=== PATIENT | female | born 1990 | race Caucasian/White ===

== ENCOUNTER 2019-11-02 18:10 | Outpatient (CLI) | payer OTHER ==
[~2019-11-02] VITALS: Ht 167.6 cm; Wt 83.6 kg
--- NOTE | 2019-11-02 18:25 | NUR ---
Pt arrived on unit ambulatory, escorted by and with complaints of vaginal pain and pressure. Pt denies contractions, leaking of fluid or vaginal bleeding and reports normal movement. EFM and toco monitors started. Vital signs WNL. SVE by this RN closed/thick/high. Information reviewed with Dr. Jacobo. Orders for labor assessment received. Plan of care reviewed with pt and at the bedside. Both verbalized an understanding, agreed with the plan and states no questions or concerns.
[2019-11-02 18:32] VITALS: BP 133/87; PULSE 93; TEMP 97.9
--- NOTE | 2019-11-02 20:26 | NUR ---
Spoke with Dr. Jacobo for an update on pt's status. Orders for discharge home received. Discharge instructions and precautions reviewed with pt and at the bedside. Both verbalized an understanding, agreed with the plan and states no questions or concerns at this time.
== END 2019-11-02 20:37 | disposition home or self-care (01) ==
LOC: LDRO 18:10
DX: Z34.93 Encounter for supervision of normal pregnancy, unspecified, third trimester (principal); Z3A.36 36 weeks gestation of pregnancy

== ENCOUNTER 2019-11-12 11:23 | Inpatient (IN) | payer OTHER ==
[2019-11-12] VITALS (16 sets, daily range): BP systolic 101–130; BP diastolic 47–88; PULSE 76–103; TEMP 97.8
[~2019-11-12] VITALS: Ht 167.7 cm; Wt 84.1 kg
[2019-11-12 16:16] LABS: BASO % 0.4 % (0.0-2.0); EOS % 0.4 % (0-4.0); GRAN # 8.4 (1.4-6.5); GRAN % 74.3 % (42.2-75.2); HEMOGLOBIN 12.1 g/dl (12.5-16.0); LYMPH % 17.9 % (20.0-51.0); MEAN CELL VOLUME 77 fl (80.0-100.0); MEAN CORPUSCULAR HEMOGLOBIN 25 pg (27.0-31.0); MEAN CORPUSCULAR HGB CONC 33 g/dl (33.0-37.0); MEAN PLATELET VOLUME 13.1 fl (7.4-10.4); MONO # 0.8 (0.1-0.6); MONO % 6.6 % (1.7-9.3); PLATELET COUNT 260 K/mm3 (130-400); RED BLOOD COUNT 4.78 M/mm3 (4.10-5.30); REDCELL DISTRIBUTION WIDTH-CV 12.7 % (11.5-14.5)
[2019-11-13 02:00] VITALS: BP 133/93; PULSE 81; TEMP 97.8
[2019-11-13 05:45] VITALS: BP 135/95; PULSE 98; TEMP 98.1
[2019-11-13 07:15] VITALS: BP 130/92; PULSE 97; TEMP 98.2
--- NOTE | 2019-11-13 11:03 | NUR ---
Initial visit; Parents thanked [employer] for offering congratulations and God's blessings for the of their son. [employer] thanked family for choosing [facility].
[2019-11-13 16:30] VITALS: BP 111/71; PULSE 87; TEMP 99
[2019-11-13 21:00] VITALS: BP 123/71; PULSE 81; TEMP 98.3
[2019-11-14 08:11] VITALS: BP 130/90; PULSE 83; TEMP 98.7
[2019-11-14 12:38] VITALS: BP 129/84; PULSE 80; TEMP 98.6
[2019-11-14 17:03] VITALS: BP 133/90; PULSE 76; TEMP 97.6
[2019-11-14 19:17] VITALS: BP 139/81; PULSE 73; TEMP 98.4
[2019-11-15 07:21] VITALS: BP 122/84; PULSE 85; TEMP 98
[2019-11-15 15:34] VITALS: BP 142/90; PULSE 70; TEMP 98
[2019-11-15 20:00] VITALS: BP 150/88; PULSE 65; TEMP 97.3
--- NOTE | 2019-11-15 21:00 | NUR ---
MILK OF MAG. HELD BECAUSE PT. HAS HAD 2 BOWEL MOVEMENTS
[2019-11-16 02:00] VITALS: BP 132/78; PULSE 72; TEMP 98
[2019-11-16 04:30] VITALS: BP 129/80; PULSE 62; TEMP 97.8
[2019-11-16 07:15] VITALS: BP 131/93; PULSE 80; TEMP 98.6
[2019-11-16] MEDS ORDERED: MOTRIN 800800 MG/TAB PO (07:59)
== END 2019-11-16 08:55 | disposition home or self-care (01) | DRG 788 ==
LOC: OB 11:23
PROVIDERS: ADMIT Obstetrics & Gynecology
PROC: 10D00Z1 Extraction of Products of Conception, Low, Open Approach (ICD-10-PCS; principal; 2019-11-12)
DX: O10.92 Unspecified pre-existing hypertension complicating childbirth (principal); O34.211 Maternal care for low transverse scar from previous cesarean delivery; Z3A.37 37 weeks gestation of pregnancy; Z37.0 Single live birth
CPT/HCPCS: J0171; J0690; J1885; J2175; J2370; J2405; J2590; J3010; J7120